=== PATIENT | male | born 1970 | race Hispanic/Latino ===

== ENCOUNTER 2023-08-12 11:26 | Emergency (ER) | payer SELFPAY | END 2023-08-12 15:37 | disposition home or self-care (01) | LOC: ERS 11:26 | DX: S61.211A Laceration without foreign body of left index finger without damage to nail, initial encounter (principal); S61.213A Laceration without foreign body of left middle finger without damage to nail, initial encounter; I10 Essential (primary) hypertension; W26.0XXA Contact with knife, initial encounter | CPT/HCPCS: 12002 ==

== ENCOUNTER 2023-11-02 11:15 | Emergency (ER) | payer SELFPAY ==
[2023-11-02] MEDS ORDERED: traMADol HCl 50 MG TAB ONE (12:06)
== END 2023-11-02 12:32 | disposition home or self-care (01) ==
LOC: ERS 11:15
DX: S82.444A Nondisplaced spiral fracture of shaft of right fibula, initial encounter for closed fracture (principal); I10 Essential (primary) hypertension; W23.1XXA Caught, crushed, jammed, or pinched between stationary objects, initial encounter
CPT/HCPCS: 27781